=== PATIENT | female | born 1975 | race Hispanic/Latino ===

== ENCOUNTER 2018-10-18 20:46 | Emergency (ER) | payer OTHER ==
[2018-10-18 21:42] LABS: APPEARANCE,URINE Clear (CLEAR); BILIRUBIN,URINE Negative (NEGATIVE); COLOR,URINE Yellow (YELLOW); GLUCOSE, URINE (UA) Negative (NEGATIVE); KETONES,URINE Negative (NEGATIVE); LEUKOCYTE ESTERASE ,URINE Negative (NEGATIVE); NITRATE,URINE Negative (NEGATIVE); OCCULT BLOOD,URINE Negative (NEGATIVE); PH,URINE 5.5 (5.0-8.0); PROTEIN,URINE Negative (NEGATIVE); UROBILINOGEN,URINE 0.2 mg/dL (0.2-1.0)
[2018-10-18 22:08] LABS: BASOPHILS % (AUTO) 0.7 % (0.0-5.0); EOSINOPHILS % (AUTO) 3.5 % (0.0-8.0); HEMATOCRIT 39.6 % (36-48); LYMPHOCYTES % (AUTO) 30.9 % (21.0-51.0); MEAN CORPUSCULAR HEMOGLOBIN 29.2 pg (27.0-33.0); MEAN CORPUSCULAR HGB CONC 33.5 g/dL (32.0-36.0); MEAN CORPUSCULAR VOLUME 87.4 fL (79-99); MONOCYTES % (AUTO) 7.7 % (3.0-13.0); NEUTROPHILS % (AUTO) 57.2 % (40.0-77.0); PLATELET COUNT (AUTO) 347 K/uL (130-400); RED BLOOD CELL COUNT(AUTO) 4.53 MIL/uL (4.00-5.50); RED CELL DISTRIBUTION WIDTH 13.5 % (11.0-15.5)
[2018-10-18 22:25] LABS: CREATININE 0.8 mg/dL (0.5-1.5); POTASSIUM 4.1 mmol/L (3.5-5.1)
[2018-10-18 22:29] LABS: ALBUMIN 3.4 g/dL (3.5-5.0); BILIRUBIN,TOTAL 0.2 mg/dL (0.2-1.0); TOTAL PROTEIN, SERUM 6.6 g/dL (6.0-8.3)
== END 2018-10-19 00:43 | disposition home or self-care (01) ==
LOC: EDH 20:46
DX: A08.4 Viral intestinal infection, unspecified (principal); F41.9 Anxiety disorder, unspecified; Z88.6 Allergy status to analgesic agent; Z90.49 Acquired absence of other specified parts of digestive tract; Z90.710 Acquired absence of both cervix and uterus
CPT/HCPCS: 36415; 74176; 80053; 81003; 81025; 83690; 85025; 96360

== ENCOUNTER 2018-10-22 17:31 | Emergency (ER) | payer OTHER ==
[2018-10-22] MEDS ORDERED: ONDANSETRON HCL 4 MG/2 ML VIAL ONE (17:49)
[2018-10-22] MEDS ORDERED: DICYCLOMINE HCL 10 MG/ML 2ML AMP IM ONE (18:00)
[2018-10-22] MEDS ORDERED: FAMOTIDINE/PF 20 MG/2 ML VIAL IV ONE (18:00)
[2018-10-22] MEDS ORDERED: SIMETHICONE 80 MG TAB.CHEW ONE (18:00)
[2018-10-22] MEDS ORDERED: KETOROLAC TROMETHAMINE 15MG/ML ONE (18:00)
[2018-10-22 18:02] LABS: BASOPHILS % (AUTO) 0.4 % (0.0-5.0); EOSINOPHILS % (AUTO) 1.9 % (0.0-8.0); HEMATOCRIT 41.8 % (36-48); LYMPHOCYTES % (AUTO) 14.3 % (21.0-51.0); MEAN CORPUSCULAR HEMOGLOBIN 29.5 pg (27.0-33.0); MEAN CORPUSCULAR HGB CONC 33.9 g/dL (32.0-36.0); MEAN CORPUSCULAR VOLUME 86.9 fL (79-99); MONOCYTES % (AUTO) 5.4 % (3.0-13.0); PLATELET COUNT (AUTO) 350 K/uL (130-400); RED BLOOD CELL COUNT(AUTO) 4.82 MIL/uL (4.00-5.50); RED CELL DISTRIBUTION WIDTH 13.5 % (11.0-15.5); WHITE BLOOD COUNT (AUTO) 8.8 K/uL (4.8-10.8)
[2018-10-22 18:12] LABS: APPEARANCE,URINE Cloudy (CLEAR); BILIRUBIN,URINE Negative (NEGATIVE); COLOR,URINE Yellow (YELLOW); GLUCOSE, URINE (UA) Negative (NEGATIVE); KETONES,URINE Negative (NEGATIVE); LEUKOCYTE ESTERASE ,URINE Trace (NEGATIVE); NITRATE,URINE Negative (NEGATIVE); OCCULT BLOOD,URINE Negative (NEGATIVE); PH,URINE 5.5 (5.0-8.0); PROTEIN,URINE Negative (NEGATIVE); UROBILINOGEN,URINE 0.2 mg/dL (0.2-1.0)
[2018-10-22 18:14] LABS: CREATININE 0.7 mg/dL (0.5-1.5); POTASSIUM 3.7 mmol/L (3.5-5.1)
[2018-10-22 18:18] LABS: AMPHET/METH SCREEN,URINE NEGATIVE (NEGATIVE); BARBITURATE SCREEN, URINE NEGATIVE (NEGATIVE); BENZODIAZEPINES SCREEN,URINE NEGATIVE (NEGATIVE); CANNABINOID SCREEN,URINE NEGATIVE (NEGATIVE); COCAINE SCREEN,URINE NEGATIVE (NEGATIVE); OPIATE SCREEN,URINE NEGATIVE (NEGATIVE); PHENCYCLIDINE SCREEN,URINE NEGATIVE (NEGATIVE)
[2018-10-22 18:18] LABS: ALBUMIN 3.9 g/dL (3.5-5.0); BILIRUBIN,TOTAL 0.5 mg/dL (0.2-1.0); TOTAL PROTEIN, SERUM 7.3 g/dL (6.0-8.3)
[2018-10-22 18:29] LABS: BACTERIA,URINE Many /HPF (None Seen); RBC,URINE None Seen /HPF (0-1)
== END 2018-10-22 19:11 | disposition home or self-care (01) ==
LOC: EDH 17:31
DX: R10.13 Epigastric pain (principal); R19.7 Diarrhea, unspecified; R11.10 Vomiting, unspecified; F41.9 Anxiety disorder, unspecified; Z88.6 Allergy status to analgesic agent; Z90.49 Acquired absence of other specified parts of digestive tract; Z90.710 Acquired absence of both cervix and uterus
CPT/HCPCS: 36415; 80053; 80305; 81001; 83690; 85025; 96361; 96372; 96374; 96375; 99284; J0500; J1885; J2405; J3490

== ENCOUNTER 2019-09-01 19:37 | Emergency (ER) | payer OTHER ==
[2019-09-01] MEDS ORDERED: LIDOCAINE 5% TOPICAL PATCH TP ONE (20:06)
[2019-09-01] MEDS ORDERED: CYCLOBENZAPRINE HCL 10 MG TABLET ONE (20:06)
[2019-09-01] MEDS ORDERED: ACETAMINOPHEN-CODEINE 300/30MG TAB ONE (20:07)
[2019-09-01] MEDS ORDERED: ONDANSETRON ODT 4 MG TAB ONE (20:07)
== END 2019-09-01 22:03 | disposition home or self-care (01) ==
LOC: EDH 19:37
DX: M50.90 Cervical disc disorder, unspecified, unspecified cervical region (principal); F41.9 Anxiety disorder, unspecified; Z88.6 Allergy status to analgesic agent; Z88.8 Allergy status to other drugs, medicaments and biological substances; V49.49XA Driver injured in collision with other motor vehicles in traffic accident, initial encounter; Y93.89 Activity, other specified; Y92.481 Parking lot as the place of occurrence of the external cause; Y99.8 Other external cause status
CPT/HCPCS: 72040

== ENCOUNTER 2023-08-02 14:17 | Emergency (ER) | payer OTHER ==
[~2023-08-02] VITALS: Ht 172.7 cm; Wt 98.4 kg
[2023-08-02 14:58] LABS: BASOPHILS # (AUTO) 0.07 K/uL (0.00-0.20); BASOPHILS % (AUTO) 0.6 % (0.0-5.0); EOSINOPHILS # (AUTO) 0.37 K/uL (0.00-0.70); EOSINOPHILS % (AUTO) 3.4 % (0.0-8.0); HEMATOCRIT 42.9 % (36-48); IMMATURE GRANULOCYTE ABSOLUTE 0.04 K/uL (0-1); LYMPHOCYTES # (AUTO) 3.6 K/uL (1.0-4.8); LYMPHOCYTES % (AUTO) 32.9 % (21.0-51.0); MEAN CORPUSCULAR HEMOGLOBIN 29.5 pg (27.0-33.0); MEAN CORPUSCULAR HGB CONC 33.1 g/dL (32.0-36.0); NEUTROPHILS # (AUTO) 5.9 K/uL (1.8-7.7); NEUTROPHILS % (AUTO) 53.7 % (40.0-77.0); PLATELET COUNT (AUTO) 458 K/uL (130-400); RED BLOOD CELL COUNT(AUTO) 4.82 MIL/uL (4.00-5.50); RED CELL DISTRIBUTION WIDTH 12.9 % (11.0-15.5); WHITE BLOOD COUNT (AUTO) 10.9 K/uL (4.8-10.8)
[2023-08-02 15:00] LABS: APPEARANCE,URINE CLEAR (CLEAR); BILIRUBIN,URINE NEGATIVE (NEGATIVE); COLOR,URINE LIGHT-YELLOW (YELLOW); GLUCOSE, URINE (UA) NEGATIVE (NEGATIVE); KETONES,URINE NEGATIVE (NEGATIVE); LEUKOCYTE ESTERASE ,URINE NEGATIVE Leu/uL (NEGATIVE); NITRATE,URINE NEGATIVE (NEGATIVE); OCCULT BLOOD,URINE NEGATIVE (NEGATIVE); PH,URINE 5.5 (5.0-8.0); PROTEIN,URINE NEGATIVE (NEGATIVE); UROBILINOGEN,URINE 0.2 mg/dL (0.2-1.0)
[2023-08-02 15:04] LABS: ADD UA MICROSCOPIC YES
[2023-08-02 15:05] LABS: BACTERIA,URINE RARE /HPF (None Seen); MUCUS,URINE RARE LPF (None Seen); RBC,URINE 0-1 /HPF (0-1); SQUAMOUS EPITHELIAL CELL,UR RARE /HPF (0-2); WBC,URINE 0-1 /HPF (0-1)
[2023-08-02 15:09] LABS: CREATININE 0.8 mg/dL (0.5-1.5); POTASSIUM 3.5 mmol/L (3.5-5.1)
[2023-08-02 15:13] LABS: ALBUMIN 3.8 g/dL (3.5-5.0); BILIRUBIN,TOTAL 0.4 mg/dL (0.2-1.0); TOTAL PROTEIN, SERUM 7.4 g/dL (6.0-8.3)
[2023-08-02] MEDS: DICYCLOMINE HCL 10 MG/5 ML ML PO ONE (17:59)
[2023-08-02] MEDS: LIDOCAINE HCL 2% VISCOUS 15 ML UDCUP PO ONE (17:59)
[2023-08-02] MEDS: MAG/ALUM/SIMETH 30 ML UDCUP PO ONE (17:59)
[2023-08-02] MEDS: KETOROLAC 60 MG VIAL (30MG/ML) IM ONE (18:00)
[2023-08-02 18:13] VITALS: BP 135/79; PULSE 80; RESP 17; O2SAT 97
[2023-08-02] MEDS ORDERED: SUCR1TAB28 PO (18:52)
[2023-08-02] MEDS ORDERED: OMEP40CA21 PO (18:52)
== END 2023-08-02 19:05 | disposition home or self-care (01) ==
LOC: EDH 14:17
DX: K29.00 Acute gastritis without bleeding (principal); Z90.49 Acquired absence of other specified parts of digestive tract; Z90.710 Acquired absence of both cervix and uterus; Z98.890 Other specified postprocedural states; Z88.6 Allergy status to analgesic agent; Z88.8 Allergy status to other drugs, medicaments and biological substances
CPT/HCPCS: 99284; 84484; 80053; 83690; 85025; 81001; 36415; 96372; 93005; J1885

== ENCOUNTER 2024-03-06 13:21 | Emergency (ER) | payer OTHER ==
[~2024-03-06] VITALS: Ht 172.7 cm; Wt 99.8 kg
[~2024-03-06 13:21] MED LIST: OMEP40CA21 PO; SUCR1TAB28 PO
[2024-03-06 14:35] LABS: APPEARANCE,URINE CLEAR (CLEAR); BILIRUBIN,URINE NEGATIVE (NEGATIVE); COLOR,URINE YELLOW (YELLOW); GLUCOSE, URINE (UA) NEGATIVE (NEGATIVE); KETONES,URINE NEGATIVE (NEGATIVE); LEUKOCYTE ESTERASE ,URINE NEGATIVE Leu/uL (NEGATIVE); NITRATE,URINE NEGATIVE (NEGATIVE); OCCULT BLOOD,URINE NEGATIVE (NEGATIVE); PH,URINE 6.5 (5.0-8.0); PROTEIN,URINE 30 mg/dL (NEGATIVE); UROBILINOGEN,URINE 0.2 mg/dL (0.2-1.0)
[2024-03-06 14:40] LABS: ADD UA MICROSCOPIC YES
[2024-03-06 14:43] LABS: MUCUS,URINE RARE LPF (None Seen); RBC,URINE 0-1 /HPF (0-1); SQUAMOUS EPITHELIAL CELL,UR RARE /HPF (0-2); WBC,URINE 0-1 /HPF (0-1)
[2024-03-06 15:10] LABS: BASOPHILS # (AUTO) 0.03 K/uL (0.00-0.20); BASOPHILS % (AUTO) 0.3 % (0.0-5.0); EOSINOPHILS # (AUTO) 0.25 K/uL (0.00-0.70); EOSINOPHILS % (AUTO) 2.5 % (0.0-8.0); HEMATOCRIT 43.9 % (36-48); IMMATURE GRANULOCYTE ABSOLUTE 0.04 K/uL (0-1); LYMPHOCYTES # (AUTO) 1.3 K/uL (1.0-4.8); LYMPHOCYTES % (AUTO) 12.9 % (21.0-51.0); MEAN CORPUSCULAR HEMOGLOBIN 29.7 pg (27.0-33.0); MEAN CORPUSCULAR HGB CONC 33.5 g/dL (32.0-36.0); MEAN CORPUSCULAR VOLUME 88.7 fL (79-99); MONOCYTES # (AUTO) 0.8 K/uL (0.1-1.0); MONOCYTES % (AUTO) 7.8 % (3.0-13.0); NEUTROPHILS # (AUTO) 7.7 K/uL (1.8-7.7); NEUTROPHILS % (AUTO) 76.1 % (40.0-77.0); PLATELET COUNT (AUTO) 395 K/uL (130-400); RED BLOOD CELL COUNT(AUTO) 4.95 MIL/uL (4.00-5.50); RED CELL DISTRIBUTION WIDTH 13.1 % (11.0-15.5); WHITE BLOOD COUNT (AUTO) 10.2 K/uL (4.8-10.8)
[2024-03-06] MEDS: 0.9%NACL 1000ML 1,000 ML IV ONE (15:16)
[2024-03-06] MEDS: ONDANSETRON 4MG INJ IVP ONE ×2 (15:16→17:04)
[2024-03-06 15:23] LABS: CREATININE 0.7 mg/dL (0.5-1.0); POTASSIUM 3.3 mmol/L (3.5-5.1)
[2024-03-06 15:27] LABS: ALBUMIN 3.6 g/dL (3.5-5.0); BILIRUBIN,TOTAL 0.5 mg/dL (0.2-1.0); TOTAL PROTEIN, SERUM 7.3 g/dL (6.0-8.3)
[2024-03-06] MEDS ORDERED: IOHEXOL-350 75 ML VIAL IV ONE (15:27)
[2024-03-06] MEDS ORDERED: morPHINE 2 MG SYG IVP ONE (16:30)
[2024-03-06] MEDS: ketOROlac 30MG VIAL (30MG/ML) IVP ONE (16:48)
[2024-03-06] MEDS: POTASSIUM BICARB/CIT AC 25 MEQ TABLET.EFF PO ONE (16:48)
[2024-03-06] MEDS: ketOROlac 30MG VIAL (30MG/ML) ONE (16:49)
[2024-03-06] MEDS: 0.9% NACL 500ML IV.SOLN 500 ML IV ONE (17:04)
[2024-03-06] MEDS ORDERED: TAMS-1 PO (17:20)
[2024-03-06 17:58] VITALS: BP 140/75; PULSE 78; RESP 18; TEMP 98; O2SAT 98
== END 2024-03-06 17:59 | disposition home or self-care (01) ==
LOC: EDH 13:21
DX: N20.0 Calculus of kidney (principal); F41.9 Anxiety disorder, unspecified; Z79.899 Other long term (current) drug therapy; Z88.6 Allergy status to analgesic agent; Z90.49 Acquired absence of other specified parts of digestive tract; Z90.710 Acquired absence of both cervix and uterus
CPT/HCPCS: 99285; 74177; 96374; 96375; 80053; 83690; 85025; 81001; 81025; 36415; 96376; J7030; J2405 ×2; J1885; Q9967